=== PATIENT | male | born 1960 | race Caucasian/White ===

== ENCOUNTER 2019-11-09 21:55 | Emergency (ER) | payer MEDICAID ==
[~2019-11-09] VITALS: Ht 175.3 cm; Wt 86.2 kg
[~2019-11-09 21:55] MED LIST: APIX2.5T OR; METO25TA5 PO
[2019-11-09 23:05] LABS: Basophils # (auto) 0 uL; Basophils % (auto) 0.8 % (0.0-2.0); Eosinophils # (auto) 0.1 uL; Eosinophils % (auto) 1.6 % (0.0-7.0); Hemoglobin 12.7 g/dL (13.5-17.5); Lymphocytes % (auto) 19.2 % (10.0-50.0); Mean Corpuscular Hemoglobin 32.9 pg (28.0-32.0); Mean Corpuscular Hgb Conc. 34.4 g/dL (32.0-36.0); Mean Corpuscular Volume 95.6 fL (80.0-100.0); Monocytes # (auto) 0.4 uL; Monocytes % (auto) 8.3 % (0.0-12.0); Neutrophils # (auto) 3.5 uL; Neutrophils % (auto) 70.1 % (37.0-80.0); Nucleated Red Blood Cells % 0.1 %; Platelet Count (auto) 155 10^3/uL (140-450); Red Blood Cells 3.87 10^6/uL (4.5-5.90); Red Cell Distribution Width 15.3 % (11.8-14.3)
[2019-11-09 23:22] LABS: Albumin 3.3 g/dL (3.4-5.0); BUN/Creatinine Ratio 17.8; Calcium 9.1 mg/dL (8.5-10.1); Magnesium 1.8 mg/dL (1.6-2.6); Potassium 3.9 mmol/L (3.5-5.1)
[2019-11-09 23:27] LABS: Bilirubin, Total 1.7 mg/dL (0.2-1.0); INR 1.21 (0.9-1.15); Partial Thromboplastin Time 28.8 sec (23.64-32.05); Total Protein 6.9 g/dL (6.4-8.2)
[2019-11-10 02:24] VITALS: BP 146/84
== END 2019-11-10 02:26 | disposition home or self-care (01) ==
LOC: EDBD 21:55 → ER 22:01
DX: I48.20 Chronic atrial fibrillation, unspecified (principal); I11.0 Hypertensive heart disease with heart failure; I50.9 Heart failure, unspecified; J44.9 Chronic obstructive pulmonary disease, unspecified; I42.9 Cardiomyopathy, unspecified; Z79.899 Other long term (current) drug therapy
CPT/HCPCS: 36415; 71045; 80053; 83735; 83880; 84484; 85025; 85610; 85730; 93005

== ENCOUNTER 2021-09-08 16:52 | Inpatient (IN) | payer MEDICAID ==
[~2021-09-08] VITALS: Ht 176.5 cm; Wt 91.0 kg
[2021-09-08 19:15] LABS: Basophils # (auto) 0 10 ^3/uL (0-0.2); Basophils % (auto) 0.3 % (0.0-2.0); Eosinophils # (auto) 0 10 ^3/uL (0-0.8); Hematocrit 42.5 % (41.0-53.0); Lymphocytes # (auto) 0.6 10 ^3/uL (0.4-5.4); Lymphocytes % (auto) 5.2 % (10.0-50.0); Mean Corpuscular Hemoglobin 32.2 pg (28.0-32.0); Mean Corpuscular Hgb Conc. 32.9 g/dL (32.0-36.0); Mean Corpuscular Volume 97.7 fL (80.0-100.0); Monocytes # (auto) 0.5 10 ^3/uL (0-1.3); Monocytes % (auto) 4.8 % (0.0-12.0); Neutrophils # (auto) 9.9 10 ^3/uL (1.6-8.6); Neutrophils % (auto) 89.7 % (37.0-80.0); Red Blood Cells 4.35 10^6/uL (4.5-5.90); Red Cell Distribution Width 15.1 % (11.8-14.3)
[2021-09-08 19:28] LABS: Albumin 2.8 g/dL (3.4-5.0); Calcium 8.8 mg/dL (8.5-10.1); Potassium 4.2 mmol/L (3.5-5.1)
[2021-09-08 19:34] LABS: Bilirubin, Total 5.7 mg/dL (0.2-1.0); Lactic Acid w/Reflex 2.8 mmol/L (0.4-2.0); Total Protein 7.3 g/dL (6.4-8.2)
[2021-09-08] MEDS ORDERED: cefTRIAXone 1GM/50ML D5W 50 ML IV ONE (20:30)
[2021-09-08] MEDS ORDERED: FUROSEMIDE 40 MG/4 ML VIAL IV ONE (20:30)
[2021-09-08] MEDS ORDERED: ENOXAPARIN SOD 80 MG/0.8ML SYRINGE SC ONE (20:30)
[2021-09-08 22:38] LABS: Urine Bacteria NONE SEEN /hpf (None Seen); Urine Blood Negative /uL (Negative); Urine Specific Gravity 1.023 (1.001-1.035); Urine WBC 1 /hpf (0 - 3)
[2021-09-09] MEDS ORDERED: ONDANSETRON HCL 4 MG/2 ML VIAL IV PRN (00:15)
[2021-09-09] MEDS ORDERED: DOCUSATE SOD 100 MG CAP PO PRN (00:15)
[2021-09-09] MEDS ORDERED: MORPHINE SULFATE INJECTION 2 MG/ML SYRG IV PRN (00:15)
[2021-09-09] MEDS ORDERED: ACETAMINOPHEN 325 MG TAB PO PRN (00:15)
[2021-09-09] MEDS ORDERED: ALBUMIN 25% 50 ML IV ONE (00:15)
[2021-09-09] MEDS ORDERED: NITROGLYCERIN 0.4 MG SL TAB SL PRN (00:15)
[2021-09-09 05:02] LABS: Basophils # (auto) 0 10 ^3/uL (0-0.2); Basophils % (auto) 0.1 % (0.0-2.0); Eosinophils # (auto) 0 10 ^3/uL (0-0.8); Hemoglobin 12.4 g/dL (13.5-17.5); Lymphocytes # (auto) 0.4 10 ^3/uL (0.4-5.4); Lymphocytes % (auto) 4.3 % (10.0-50.0); Mean Corpuscular Hemoglobin 32.2 pg (28.0-32.0); Mean Corpuscular Hgb Conc. 33.4 g/dL (32.0-36.0); Mean Corpuscular Volume 96.3 fL (80.0-100.0); Monocytes # (auto) 0.5 10 ^3/uL (0-1.3); Monocytes % (auto) 5.2 % (0.0-12.0); Neutrophils # (auto) 7.9 10 ^3/uL (1.6-8.6); Neutrophils % (auto) 90.4 % (37.0-80.0); Red Blood Cells 3.85 10^6/uL (4.5-5.90); Red Cell Distribution Width 14.9 % (11.8-14.3); White Blood Cell 8.7 10^3/uL (4.4-10.8)
[2021-09-09 05:27] LABS: Albumin 2.3 g/dL (3.4-5.0); BUN/Creatinine Ratio 33.3; Calcium 8.2 mg/dL (8.5-10.1); Potassium 3.3 mmol/L (3.5-5.1)
[2021-09-09 05:35] LABS: Bilirubin, Total 5.1 mg/dL (0.2-1.0); Total Protein 5.8 g/dL (6.4-8.2)
[2021-09-09] MEDS: cefTRIAXone 1GM/50ML D5W 50 ML IV SCH (08:29)
[2021-09-09] MEDS: HYDROcodone-ACET 5/325MG TAB PO PRN (08:59)
[2021-09-09] MEDS: ASPirin 81 mg TAB PO SCH (09:51)
[2021-09-09] MEDS: FAMOTIDINE (10MG/ML) 2ML VL IV SCH ×2 (09:51→22:22)
[2021-09-09] MEDS: CARVEDILOL 3.125 MG TAB PO SCH ×2 (09:51→10:57)
[2021-09-09] MEDS: ASCORBIC ACID 500 MG TAB PO SCH ×2 (09:52→22:21)
[2021-09-09] MEDS: ZINC SULFATE 220mg CAP or TAB PO SCH (09:52)
[2021-09-09] MEDS: MULTIPLE VITAMIN TAB PO SCH (09:52)
[2021-09-09] MEDS: APIXABAN 2.5 MG TAB PO SCH ×2 (09:52→22:21)
[2021-09-09] MEDS ORDERED: AZITHROMYCIN 500MG/ 250ML 250 ML IV SCH (10:00)
[2021-09-09] MEDS ORDERED: FUROSEMIDE 40 MG/4 ML VIAL IV SCH ×2 (10:00→13:00)
[2021-09-09] MEDS ORDERED: NOREPINEPHRINE 8 MG/250ML KIT 250 ML IV ONE (12:42)
[2021-09-09] MEDS ORDERED: NOREPINEPHRINE 8 MG/250ML KIT 250 ML IV SCH (13:00)
[2021-09-09] MEDS: FUROSEMIDE 40 MG/4 ML VIAL IV SCH ×2 (16:46→22:38)
[2021-09-09 20:30] VITALS: BP 106/78
[2021-09-09 22:00] VITALS: BP 106/78
[2021-09-09] MEDS: SACUBITRIL-VALSARTAN 24mg/26mg TAB PO SCH (22:21)
[2021-09-10 05:00] VITALS: BP 90/59
[2021-09-10] MEDS ORDERED: FURO40TA4 PO (05:01)
[2021-09-10] MEDS ORDERED: MEXI150C15 PO (05:05)
[2021-09-10] MEDS: FUROSEMIDE 40 MG/4 ML VIAL IV SCH ×2 (05:38→18:08)
[2021-09-10 07:30] LABS: Basophils # (auto) 0 10 ^3/uL (0-0.2); Basophils % (auto) 0.1 % (0.0-2.0); Eosinophils # (auto) 0.1 10 ^3/uL (0-0.8); Eosinophils % (auto) 1.1 % (0.0-7.0); Hematocrit 35.6 % (41.0-53.0); Hemoglobin 12.2 g/dL (13.5-17.5); Lymphocytes # (auto) 0.7 10 ^3/uL (0.4-5.4); Lymphocytes % (auto) 10.2 % (10.0-50.0); Mean Corpuscular Hemoglobin 33.5 pg (28.0-32.0); Mean Corpuscular Hgb Conc. 34.4 g/dL (32.0-36.0); Mean Corpuscular Volume 97.2 fL (80.0-100.0); Monocytes # (auto) 0.9 10 ^3/uL (0-1.3); Monocytes % (auto) 13.7 % (0.0-12.0); Neutrophils # (auto) 5.1 10 ^3/uL (1.6-8.6); Neutrophils % (auto) 74.9 % (37.0-80.0); Nucleated Red Blood Cells % 0.1 %; Red Blood Cells 3.66 10^6/uL (4.5-5.90); Red Cell Distribution Width 14.9 % (11.8-14.3); White Blood Cell 6.8 10^3/uL (4.4-10.8)
[2021-09-10 07:36] LABS: Potassium 3.2 mmol/L (3.5-5.1)
[2021-09-10 07:46] LABS: Albumin 1.8 g/dL (3.4-5.0); BUN/Creatinine Ratio 33.3; Bilirubin, Total 2.2 mg/dL (0.2-1.0); Calcium 7.5 mg/dL (8.5-10.1); Total Protein 4.7 g/dL (6.4-8.2)
[2021-09-10 08:41] VITALS: BP 140/48
[2021-09-10] MEDS: cefTRIAXone 1GM/50ML D5W 50 ML IV SCH (09:25)
[2021-09-10] MEDS: FAMOTIDINE (10MG/ML) 2ML VL IV SCH ×2 (10:37→22:51)
[2021-09-10] MEDS: CARVEDILOL 3.125 MG TAB PO SCH ×2 (10:38→22:53)
[2021-09-10] MEDS: ASPirin 81 mg TAB PO SCH (10:38)
[2021-09-10] MEDS: SACUBITRIL-VALSARTAN 24mg/26mg TAB PO SCH ×2 (10:38→22:53)
[2021-09-10] MEDS: MULTIPLE VITAMIN TAB PO SCH (10:38)
[2021-09-10] MEDS: ZINC SULFATE 220mg CAP or TAB PO SCH (10:38)
[2021-09-10] MEDS: APIXABAN 2.5 MG TAB PO SCH ×2 (10:38→22:53)
[2021-09-10] MEDS: ASCORBIC ACID 500 MG TAB PO SCH ×2 (10:39→22:54)
[2021-09-10] MEDS: HYDROcodone-ACET 5/325MG TAB PO PRN ×2 (12:00→20:03)
[2021-09-10] MEDS: POTASSIUM CHL 20 Meq TABLET PO SCH (12:30)
[2021-09-10 12:36] VITALS: BP 107/54
[2021-09-10 16:48] VITALS: BP 78/50
[2021-09-10 22:20] VITALS: BP 95/68
[2021-09-11 05:00] VITALS: BP 96/56
[2021-09-11] MEDS: FUROSEMIDE 40 MG/4 ML VIAL IV SCH ×2 (05:35→18:00)
[2021-09-11 08:13] LABS: Basophils # (auto) 0 10 ^3/uL (0-0.2); Basophils % (auto) 0.5 % (0.0-2.0); Eosinophils # (auto) 0.1 10 ^3/uL (0-0.8); Eosinophils % (auto) 2.3 % (0.0-7.0); Hemoglobin 12.9 g/dL (13.5-17.5); Lymphocytes # (auto) 0.9 10 ^3/uL (0.4-5.4); Lymphocytes % (auto) 16.4 % (10.0-50.0); Mean Corpuscular Hemoglobin 33.2 pg (28.0-32.0); Mean Corpuscular Hgb Conc. 34.1 g/dL (32.0-36.0); Mean Corpuscular Volume 97.5 fL (80.0-100.0); Monocytes % (auto) 17.9 % (0.0-12.0); Neutrophils # (auto) 3.5 10 ^3/uL (1.6-8.6); Neutrophils % (auto) 62.9 % (37.0-80.0); Red Blood Cells 3.89 10^6/uL (4.5-5.90); Red Cell Distribution Width 14.9 % (11.8-14.3); White Blood Cell 5.5 10^3/uL (4.4-10.8)
[2021-09-11 08:19] LABS: Potassium 3.4 mmol/L (3.5-5.1)
[2021-09-11 08:27] LABS: Albumin 1.8 g/dL (3.4-5.0); BUN/Creatinine Ratio 35.8; Bilirubin, Total 1.4 mg/dL (0.2-1.0); Calcium 7.8 mg/dL (8.5-10.1); Phosphorus 2.4 mg/dL (2.5-4.90); Total Protein 4.7 g/dL (6.4-8.2)
[2021-09-11 09:00] VITALS: BP 84/61
[2021-09-11] MEDS: cefTRIAXone 1GM/50ML D5W 50 ML IV SCH (09:00)
[2021-09-11] MEDS: CARVEDILOL 3.125 MG TAB PO SCH ×2 (10:00→21:35)
[2021-09-11] MEDS: FAMOTIDINE (10MG/ML) 2ML VL IV SCH ×2 (10:28→21:34)
[2021-09-11] MEDS: ASPirin 81 mg TAB PO SCH (10:29)
[2021-09-11] MEDS: ZINC SULFATE 220mg CAP or TAB PO SCH (10:29)
[2021-09-11] MEDS: ASCORBIC ACID 500 MG TAB PO SCH ×2 (10:30→21:35)
[2021-09-11] MEDS: SACUBITRIL-VALSARTAN 24mg/26mg TAB PO SCH ×2 (10:30→21:35)
[2021-09-11] MEDS: POTASSIUM CHL 20 Meq TABLET PO SCH (10:30)
[2021-09-11] MEDS: MULTIPLE VITAMIN TAB PO SCH (10:30)
[2021-09-11 11:24] LABS: Hepatitis B Surface Antibody Negative
[2021-09-11 11:47] LABS: Hepatitis A Total Antibody Negative
[2021-09-11 12:56] VITALS: BP 86/53
[2021-09-11 15:15] LABS: Hepatitis C Antibody Negative (Negative)
[2021-09-11 16:40] VITALS: BP 92/66
[2021-09-11] MEDS: HYDROcodone-ACET 5/325MG TAB PO PRN (19:48)
[2021-09-11 22:00] VITALS: BP 93/57
[2021-09-12 05:17] VITALS: BP 107/73
[2021-09-12] MEDS: FUROSEMIDE 40 MG/4 ML VIAL IV SCH ×2 (06:00→17:30)
[2021-09-12 09:00] VITALS: BP 90/51
[2021-09-12] MEDS: cefTRIAXone 1GM/50ML D5W 50 ML IV SCH (09:00)
[2021-09-12] MEDS: ASPirin 81 mg TAB PO SCH (09:18)
[2021-09-12] MEDS: FAMOTIDINE (10MG/ML) 2ML VL IV SCH ×2 (09:18→21:35)
[2021-09-12] MEDS: CARVEDILOL 3.125 MG TAB PO SCH ×2 (09:19→21:49)
[2021-09-12] MEDS: SACUBITRIL-VALSARTAN 24mg/26mg TAB PO SCH ×2 (09:20→21:49)
[2021-09-12] MEDS: POTASSIUM CHL 20 Meq TABLET PO SCH (09:20)
[2021-09-12] MEDS: MULTIPLE VITAMIN TAB PO SCH (09:20)
[2021-09-12] MEDS: ASCORBIC ACID 500 MG TAB PO SCH ×2 (09:20→21:36)
[2021-09-12] MEDS: ZINC SULFATE 220mg CAP or TAB PO SCH (10:00)
[2021-09-12 13:00] VITALS: BP 102/63
[2021-09-12] MEDS: HYDROcodone-ACET 5/325MG TAB PO PRN (13:16)
[2021-09-12 17:00] VITALS: BP 123/77
[2021-09-12 22:00] VITALS: BP 95/62
[2021-09-13 05:00] VITALS: BP 104/77
[2021-09-13] MEDS: FUROSEMIDE 40 MG/4 ML VIAL IV SCH ×2 (05:56→17:33)
[2021-09-13 07:50] LABS: Basophils # (auto) 0 10 ^3/uL (0-0.2); Basophils % (auto) 0.4 % (0.0-2.0); Eosinophils # (auto) 0.2 10 ^3/uL (0-0.8); Eosinophils % (auto) 2.1 % (0.0-7.0); Hematocrit 40.2 % (41.0-53.0); Hemoglobin 13.3 g/dL (13.5-17.5); Lymphocytes # (auto) 1.4 10 ^3/uL (0.4-5.4); Lymphocytes % (auto) 17.6 % (10.0-50.0); Mean Corpuscular Hemoglobin 32.3 pg (28.0-32.0); Mean Corpuscular Hgb Conc. 33.1 g/dL (32.0-36.0); Mean Corpuscular Volume 97.8 fL (80.0-100.0); Monocytes % (auto) 12.1 % (0.0-12.0); Neutrophils # (auto) 5.5 10 ^3/uL (1.6-8.6); Neutrophils % (auto) 67.8 % (37.0-80.0); Nucleated Red Blood Cells % 0.1 %; Red Blood Cells 4.11 10^6/uL (4.5-5.90); Red Cell Distribution Width 14.9 % (11.8-14.3); White Blood Cell 8.1 10^3/uL (4.4-10.8)
[2021-09-13 08:12] LABS: Albumin 1.9 g/dL (3.4-5.0); BUN/Creatinine Ratio 30.4; Calcium 7.9 mg/dL (8.5-10.1)
[2021-09-13 08:15] LABS: Total Protein 5.1 g/dL (6.4-8.2)
[2021-09-13 09:00] VITALS: BP 108/45
[2021-09-13] MEDS: FAMOTIDINE (10MG/ML) 2ML VL IV SCH ×2 (09:43→21:44)
[2021-09-13] MEDS: cefTRIAXone 1GM/50ML D5W 50 ML IV SCH (09:43)
[2021-09-13] MEDS: CARVEDILOL 3.125 MG TAB PO SCH ×2 (09:44→21:45)
[2021-09-13] MEDS: ZINC SULFATE 220mg CAP or TAB PO SCH (09:44)
[2021-09-13] MEDS: MULTIPLE VITAMIN TAB PO SCH (09:44)
[2021-09-13] MEDS: ASPirin 81 mg TAB PO SCH (09:44)
[2021-09-13] MEDS: SACUBITRIL-VALSARTAN 24mg/26mg TAB PO SCH ×2 (09:45→21:45)
[2021-09-13] MEDS: POTASSIUM CHL 20 Meq TABLET PO SCH (09:46)
[2021-09-13] MEDS: ASCORBIC ACID 500 MG TAB PO SCH ×2 (09:46→21:45)
[2021-09-13 13:00] VITALS: BP 104/71
[2021-09-13 16:46] VITALS: BP 107/68
[2021-09-13] MEDS ORDERED: IPRATROPIUM BROM 0.5 MG/2.5ML INH SOL NEB PRN (17:30)
[2021-09-13] MEDS ORDERED: ALBUTEROL SULF 2.5 MG/0.5ML(0.5%) NEB SOLN NEB PRN (17:30)
[2021-09-13 19:13] VITALS: BP 107/68
[2021-09-13 22:00] VITALS: BP 106/59
[2021-09-13] MEDS: guaiFENesin-CODEINE Liq 5 ML UD PO PRN (22:25)
[2021-09-14] MEDS: guaiFENesin-CODEINE Liq 5 ML UD PO PRN ×2 (02:25→06:31)
[2021-09-14 05:00] VITALS: BP 103/59
[2021-09-14] MEDS: FUROSEMIDE 40 MG/4 ML VIAL IV SCH ×2 (06:31→17:52)
[2021-09-14 09:00] VITALS: BP 100/61
[2021-09-14] MEDS: ASCORBIC ACID 500 MG TAB PO SCH (09:47)
[2021-09-14] MEDS: MULTIPLE VITAMIN TAB PO SCH (09:47)
[2021-09-14] MEDS: cefTRIAXone 1GM/50ML D5W 50 ML IV SCH (09:47)
[2021-09-14] MEDS: ZINC SULFATE 220mg CAP or TAB PO SCH (09:48)
[2021-09-14] MEDS: FAMOTIDINE (10MG/ML) 2ML VL IV SCH (09:49)
[2021-09-14] MEDS: ASPirin 81 mg TAB PO SCH (09:49)
[2021-09-14] MEDS: POTASSIUM CHL 20 Meq TABLET PO SCH (09:49)
[2021-09-14] MEDS: SACUBITRIL-VALSARTAN 24mg/26mg TAB PO SCH (09:49)
[2021-09-14] MEDS: CARVEDILOL 3.125 MG TAB PO SCH (10:00)
[2021-09-14 13:00] VITALS: BP 102/66
[2021-09-14 15:44] VITALS: BP 100/61
[2021-09-14 17:00] VITALS: BP 101/54
== END 2021-09-14 19:08 | disposition hospice, home (50) | DRG 201 ==
LOC: ER 16:52 → EDBD 16:52 → TELE 09-09 00:09 → TELE-CENTR 09-09 20:14
PROVIDERS: ADMIT Nurse Practitioner Family; ATTEND Internal Medicine
DX: I48.0 Paroxysmal atrial fibrillation (principal); J96.01 Acute respiratory failure with hypoxia; I50.43 Acute on chronic combined systolic (congestive) and diastolic (congestive) heart failure; I21.A1 Myocardial infarction type 2; E87.2 Acidosis; J18.9 Pneumonia, unspecified organism; E88.09 Other disorders of plasma-protein metabolism, not elsewhere classified; I95.9 Hypotension, unspecified; I13.0 Hypertensive heart and chronic kidney disease with heart failure and stage 1 through stage 4 chronic kidney disease, or unspecified chronic kidney disease; I42.9 Cardiomyopathy, unspecified; K76.0 Fatty (change of) liver, not elsewhere classified; D72.829 Elevated white blood cell count, unspecified; N18.9 Chronic kidney disease, unspecified; K80.20 Calculus of gallbladder without cholecystitis without obstruction; Z20.822 Contact with and (suspected) exposure to COVID-19; J44.0 Chronic obstructive pulmonary disease with (acute) lower respiratory infection; Z79.01 Long term (current) use of anticoagulants; Z95.0 Presence of cardiac pacemaker; I50.84 End stage heart failure
CPT/HCPCS: 36415; 71045; 76705; 80053; 81001; 83605; 83735; 83880; 84100; 84484; 85025; 86704; 86706; 86708; 86803; 87040; 87077; 87186; 87340; 87426; 93005; 93306; 93925; 96365; 96372; 96375; 97116; 97163; 97530; 99291; G0378; J0696; J3490

== ENCOUNTER 2022-09-27 14:08 | Inpatient (IN) | payer MEDICAID ==
[~2022-09-27] VITALS: Ht 170.2 cm; Wt 76.6 kg
[~2022-09-27 14:08] MED LIST changes: +ACET-1156 PO; -APIX2.5T OR; +APIX5TAB PO; +BISA10SU60 PR; +CAR3125T PO; +FUR20T PO; -METO25TA5 PO; +PANT40T PO; +SACU1TAB PO; +SUCR1TAB22 OR
[2022-09-27] MEDS ORDERED: FUROSEMIDE 40 MG/4 ML VIAL IV ONE (14:30)
[2022-09-27 15:16] LABS: Basophils # (auto) 0 10 ^3/uL (0-0.2); Basophils % (auto) 0.3 % (0.0-2.0); Eosinophils # (auto) 0 10 ^3/uL (0-0.8); Eosinophils % (auto) 0.1 % (0.0-7.0); Hematocrit 34.4 % (41.0-53.0); Hemoglobin 11.4 g/dL (13.5-17.5); Lymphocytes # (auto) 0.6 10 ^3/uL (0.4-5.4); Lymphocytes % (auto) 5.7 % (10.0-50.0); Mean Corpuscular Hemoglobin 31.7 pg (28.0-32.0); Mean Corpuscular Hgb Conc. 33.2 g/dL (32.0-36.0); Mean Corpuscular Volume 95.3 fL (80.0-100.0); Monocytes # (auto) 0.9 10 ^3/uL (0-1.3); Monocytes % (auto) 9.2 % (0.0-12.0); Neutrophils # (auto) 8.6 10 ^3/uL (1.6-8.6); Neutrophils % (auto) 84.7 % (37.0-80.0); Nucleated Red Blood Cells % 0.1 %; Red Blood Cells 3.61 10^6/uL (4.5-5.90); Red Cell Distribution Width 14.8 % (11.8-14.3); White Blood Cell 10.1 10^3/uL (4.4-10.8)
[2022-09-27 15:32] LABS: Calcium 8.4 mg/dL (8.5-10.1); Potassium 3.7 mmol/L (3.5-5.1)
[2022-09-27 15:35] LABS: BUN/Creatinine Ratio 15.1; Bilirubin, Total 1.6 mg/dL (0.2-1.0); Total Protein 6.1 g/dL (6.4-8.2)
[2022-09-27 15:38] LABS: INR 1.23 (0.9-1.15); Partial Thromboplastin Time 32.2 sec (24.6-33.4)
[2022-09-27 16:29] LABS: Urine Bacteria NONE SEEN /hpf (None Seen); Urine Blood Negative /uL (Negative); Urine Hyaline Cast FEW /lpf (0 - 2); Urine Mucus FEW (None Seen); Urine Specific Gravity 1.007 (1.001-1.035); Urine WBC <1 /hpf (0 - 3)
[2022-09-27] MEDS ORDERED: DOCUSATE SOD 100 MG CAP PO PRN (17:15)
[2022-09-27] MEDS ORDERED: IPRATROPIUM BROM 0.5 MG/2.5ML INH SOL NEB PRN ×2 (17:15→17:30)
[2022-09-27] MEDS ORDERED: MORPHINE SULFATE INJ 2 MG/ml SYRG IV PRN ×2 (17:15)
[2022-09-27] MEDS ORDERED: ACETAMINOPHEN 325 MG TAB PO PRN (17:15)
[2022-09-27] MEDS ORDERED: NITROGLYCERIN 0.4 MG SL TAB SL PRN (17:15)
[2022-09-27 19:35] VITALS: BP 104/69
[2022-09-27] MEDS: HYDROcodone-ACET 5/325MG TAB PO PRN (20:30)
[2022-09-27] MEDS ORDERED: IOHEXOL 350 MG/ML 100ML IJ ONE (21:42)
[2022-09-27] MEDS: DOXYCYCLINE 100MG/250ML 250 ML IV SCH (22:16)
[2022-09-27] MEDS: SUCRALFATE 1 GM TAB PO SCH (22:17)
[2022-09-27] MEDS: CARVEDILOL 3.125 MG TAB PO SCH (22:17)
[2022-09-27] MEDS: APIXABAN 5 MG TAB PO SCH (22:18)
[2022-09-27] MEDS: SACUBITRIL-VALSARTAN 24mg/26mg TAB PO SCH (22:18)
[2022-09-27] MEDS: PANTOPRAZOLE 40 MG TAB PO SCH (22:18)
[2022-09-27 22:33] VITALS: BP 112/62
[2022-09-27] MEDS ORDERED: POTA10TA51 PO (23:20)
[2022-09-28 04:44] VITALS: BP 99/53
[2022-09-28 05:54] LABS: Basophils # (auto) 0 10 ^3/uL (0-0.2); Basophils % (auto) 0.4 % (0.0-2.0); Eosinophils # (auto) 0 10 ^3/uL (0-0.8); Eosinophils % (auto) 0.3 % (0.0-7.0); Hematocrit 29.5 % (41.0-53.0); Lymphocytes # (auto) 0.8 10 ^3/uL (0.4-5.4); Lymphocytes % (auto) 8.9 % (10.0-50.0); Mean Corpuscular Hemoglobin 31.7 pg (28.0-32.0); Mean Corpuscular Volume 93.2 fL (80.0-100.0); Monocytes % (auto) 11.7 % (0.0-12.0); Neutrophils % (auto) 78.7 % (37.0-80.0); Red Blood Cells 3.16 10^6/uL (4.5-5.90); Red Cell Distribution Width 14.8 % (11.8-14.3); White Blood Cell 8.9 10^3/uL (4.4-10.8)
[2022-09-28 06:10] LABS: Albumin 1.6 g/dL (3.4-5.0); Calcium 7.9 mg/dL (8.5-10.1); Potassium 3.7 mmol/L (3.5-5.1)
[2022-09-28 06:12] LABS: Bilirubin, Total 1.2 mg/dL (0.2-1.0)
[2022-09-28] MEDS: APIXABAN 5 MG TAB PO SCH ×2 (08:43→22:45)
[2022-09-28] MEDS: CARVEDILOL 3.125 MG TAB PO SCH ×2 (08:43→22:45)
[2022-09-28] MEDS: PANTOPRAZOLE 40 MG TAB PO SCH ×2 (08:43→22:46)
[2022-09-28] MEDS: SUCRALFATE 1 GM TAB PO SCH ×2 (08:43→22:44)
[2022-09-28] MEDS: DOXYCYCLINE 100MG/250ML 250 ML IV SCH ×2 (08:43→22:44)
[2022-09-28] MEDS: SACUBITRIL-VALSARTAN 24mg/26mg TAB PO SCH ×2 (08:44→22:46)
[2022-09-28] MEDS: HYDROcodone-ACET 5/325MG TAB PO PRN (08:50)
[2022-09-28 09:00] VITALS: BP 92/55
[2022-09-28] MEDS ORDERED: FUROSEMIDE 20 MG TAB PO SCH (10:00)
[2022-09-28 13:00] VITALS: BP 99/64
[2022-09-28] MEDS ORDERED: FUROSEMIDE 20 MG TAB PO ONE (16:30)
[2022-09-28 17:00] VITALS: BP 99/53
[2022-09-28 22:00] VITALS: BP 92/56
[2022-09-29 05:00] VITALS: BP 92/56
[2022-09-29 07:08] LABS: Potassium 3.8 mmol/L (3.5-5.1)
[2022-09-29 07:14] LABS: BUN/Creatinine Ratio 28.6; Calcium 8.1 mg/dL (8.5-10.1)
[2022-09-29 09:00] VITALS: BP 99/65
[2022-09-29] MEDS: DOXYCYCLINE 100MG/250ML 250 ML IV SCH ×2 (09:20→23:02)
[2022-09-29] MEDS: PANTOPRAZOLE 40 MG TAB PO SCH ×2 (09:21→23:08)
[2022-09-29] MEDS: APIXABAN 5 MG TAB PO SCH ×2 (09:22→23:08)
[2022-09-29] MEDS: CARVEDILOL 3.125 MG TAB PO SCH ×2 (09:22→23:08)
[2022-09-29] MEDS: SUCRALFATE 1 GM TAB PO SCH ×2 (09:22→23:07)
[2022-09-29] MEDS: SACUBITRIL-VALSARTAN 24mg/26mg TAB PO SCH ×2 (09:27→23:08)
[2022-09-29] MEDS: HYDROcodone-ACET 5/325MG TAB PO PRN ×2 (09:34→23:22)
[2022-09-29] MEDS ORDERED: FUROSEMIDE 20 MG TAB PO SCH (10:00)
[2022-09-29 13:00] VITALS: BP 92/53
[2022-09-29 17:00] VITALS: BP 114/70
[2022-09-29] MEDS: FUROSEMIDE 40 MG/4 ML VIAL IV SCH (17:01)
[2022-09-29 22:00] VITALS: BP 91/56
[2022-09-30] MEDS: HYDROcodone-ACET 5/325MG TAB PO PRN ×2 (04:33→04:35)
[2022-09-30 05:00] VITALS: BP 88/53
[2022-09-30] MEDS: FUROSEMIDE 40 MG/4 ML VIAL IV SCH ×2 (06:00→17:18)
[2022-09-30 09:00] VITALS: BP 97/57
[2022-09-30] MEDS: PANTOPRAZOLE 40 MG TAB PO SCH ×2 (09:29→22:14)
[2022-09-30] MEDS: SUCRALFATE 1 GM TAB PO SCH ×2 (09:29→22:13)
[2022-09-30] MEDS: DOXYCYCLINE 100MG/250ML 250 ML IV SCH ×2 (09:29→22:14)
[2022-09-30] MEDS: APIXABAN 5 MG TAB PO SCH ×2 (09:30→22:11)
[2022-09-30] MEDS: CARVEDILOL 3.125 MG TAB PO SCH ×2 (09:41→22:13)
[2022-09-30] MEDS: SACUBITRIL-VALSARTAN 24mg/26mg TAB PO SCH ×2 (09:42→23:22)
[2022-09-30 13:00] VITALS: BP 89/56
[2022-09-30 16:35] VITALS: BP 87/58
[2022-09-30 20:00] VITALS: BP 99/60
[2022-09-30 22:00] VITALS: BP 93/56
[2022-10-01 05:00] VITALS: BP 100/58
[2022-10-01 05:59] LABS: Basophils # (auto) 0 10 ^3/uL (0-0.2); Basophils % (auto) 0.4 % (0.0-2.0); Eosinophils # (auto) 0.1 10 ^3/uL (0-0.8); Eosinophils % (auto) 0.9 % (0.0-7.0); Hematocrit 27.7 % (41.0-53.0); Hemoglobin 9.2 g/dL (13.5-17.5); Lymphocytes # (auto) 0.7 10 ^3/uL (0.4-5.4); Lymphocytes % (auto) 7.7 % (10.0-50.0); Mean Corpuscular Hgb Conc. 33.3 g/dL (32.0-36.0); Mean Corpuscular Volume 92.9 fL (80.0-100.0); Red Blood Cells 2.98 10^6/uL (4.5-5.90); Red Cell Distribution Width 14.8 % (11.8-14.3); White Blood Cell 8.7 10^3/uL (4.4-10.8)
[2022-10-01] MEDS: FUROSEMIDE 40 MG/4 ML VIAL IV SCH ×2 (06:47→18:44)
[2022-10-01 08:00] VITALS: BP 91/47
[2022-10-01 09:20] VITALS: BP 91/47
[2022-10-01 09:28] LABS: Alanine Aminotransferase 16 U/L (16-61); Albumin 1.5 g/dL (3.4-5.0); Anion Gap 9 (5-15); Aspartate Aminotransferase 20 U/L (15-37); BUN/Creatinine Ratio 28.6; Blood Urea Nitrogen 14 mg/dL (7-18); Calcium 7.7 mg/dL (8.5-10.1); Carbon Dioxide 27 mmol/L (21-32); Chloride 98 mmol/L (98-107); GFR African American 221 mL/min; GFR Non-African American 183 mL/min; Glucose 111 mg/dL (74-106); Potassium 3.5 mmol/L (3.5-5.1); Sodium 134 mmol/L (136-145)
[2022-10-01 09:30] LABS: Alkaline Phosphatase 210 U/L (45-117); Bilirubin, Total 0.6 mg/dL (0.2-1.0); Total Protein 5.1 g/dL (6.4-8.2)
[2022-10-01] MEDS: SUCRALFATE 1 GM TAB PO SCH ×2 (10:02→21:41)
[2022-10-01] MEDS: DOXYCYCLINE 100MG/250ML 250 ML IV SCH ×2 (10:02→21:42)
[2022-10-01] MEDS: CARVEDILOL 3.125 MG TAB PO SCH ×2 (10:03→21:42)
[2022-10-01] MEDS: PANTOPRAZOLE 40 MG TAB PO SCH ×2 (10:04→21:41)
[2022-10-01] MEDS: APIXABAN 5 MG TAB PO SCH ×2 (10:04→21:41)
[2022-10-01] MEDS: SACUBITRIL-VALSARTAN 24mg/26mg TAB PO SCH ×2 (10:04→23:40)
[2022-10-01 13:19] VITALS: BP 87/48
[2022-10-01 16:05] VITALS: BP 101/65
[2022-10-01] MEDS: ONDANSETRON HCL 4 MG/2 ML VIAL IV PRN ×2 (18:53→23:38)
[2022-10-01 22:00] VITALS: BP 95/46
[2022-10-02 05:00] VITALS: BP 95/61
[2022-10-02] MEDS: FUROSEMIDE 40 MG/4 ML VIAL IV SCH ×2 (06:19→18:00)
[2022-10-02 07:12] LABS: BUN/Creatinine Ratio 25.9; Calcium 8.5 mg/dL (8.5-10.1); Potassium 3.9 mmol/L (3.5-5.1)
[2022-10-02 09:02] VITALS: BP 91/59
[2022-10-02] MEDS: SACUBITRIL-VALSARTAN 24mg/26mg TAB PO SCH ×2 (10:00→22:06)
[2022-10-02] MEDS: CARVEDILOL 3.125 MG TAB PO SCH ×2 (10:00→22:05)
[2022-10-02] MEDS: Pro-Stat SF 30ml Vanilla PO SCH (10:27)
[2022-10-02] MEDS: DOXYCYCLINE 100MG/250ML 250 ML IV SCH ×2 (10:30→22:06)
[2022-10-02] MEDS: SUCRALFATE 1 GM TAB PO SCH ×2 (10:31→22:04)
[2022-10-02] MEDS: PANTOPRAZOLE 40 MG TAB PO SCH ×2 (10:33→22:04)
[2022-10-02] MEDS: APIXABAN 5 MG TAB PO SCH ×2 (10:33→22:05)
[2022-10-02 13:14] VITALS: BP 80/60
[2022-10-02 16:55] VITALS: BP 82/46
[2022-10-02 22:00] VITALS: BP 120/59
[2022-10-02] MEDS: MIDODRINE HCL 10 MG TAB PO SCH (22:05)
[2022-10-02] MEDS: HYDROcodone-ACET 5/325MG TAB PO PRN (22:17)
[2022-10-03] MEDS: ZOLPIDEM TARTRATE 5 MG TAB PO PRN ×2 (00:28→21:40)
[2022-10-03 01:15] LABS: Amphetamine Screen, Urine NEGATIVE (NEGATIVE); Barbiturate Scree,Urine NEGATIVE (NEGATIVE); Benzodiazephine Screen, Urine NEGATIVE (NEGATIVE); Cannabinoid Screen, Urine NEGATIVE (NEGATIVE); Cocaine Screen, Urine NEGATIVE (NEGATIVE); Opiate Scree,Urine NEGATIVE (NEGATIVE); Phencyclidine Screen, Urine NEGATIVE (NEGATIVE)
[2022-10-03 05:00] VITALS: BP 101/67
[2022-10-03] MEDS: FUROSEMIDE 40 MG/4 ML VIAL IV SCH ×2 (06:27→18:49)
[2022-10-03 09:00] VITALS: BP 84/55
[2022-10-03 09:06] VITALS: BP 84/55
[2022-10-03] MEDS ORDERED: IOHEXOL 300 MG/ML 100ML BOTTLE IJ ONE (09:24)
[2022-10-03] MEDS: CARVEDILOL 3.125 MG TAB PO SCH ×2 (10:30→22:00)
[2022-10-03] MEDS: PANTOPRAZOLE 40 MG TAB PO SCH ×2 (10:30→21:40)
[2022-10-03] MEDS: MIDODRINE HCL 10 MG TAB PO SCH ×2 (10:30→21:41)
[2022-10-03] MEDS: APIXABAN 5 MG TAB PO SCH ×2 (10:30→21:40)
[2022-10-03] MEDS: SUCRALFATE 1 GM TAB PO SCH ×2 (10:30→21:40)
[2022-10-03] MEDS: DOXYCYCLINE 100MG/250ML 250 ML IV SCH ×2 (10:30→21:41)
[2022-10-03] MEDS: Pro-Stat SF 30ml Vanilla PO SCH (10:30)
[2022-10-03] MEDS: SACUBITRIL-VALSARTAN 24mg/26mg TAB PO SCH ×2 (10:30→22:00)
[2022-10-03 13:00] VITALS: BP 92/51
[2022-10-03 17:00] VITALS: BP 93/54
[2022-10-03 22:00] VITALS: BP 95/53
[2022-10-04 05:34] VITALS: BP 104/57
[2022-10-04 05:53] LABS: Albumin 1.6 g/dL (3.4-5.0); BUN/Creatinine Ratio 32.7; Calcium 8.6 mg/dL (8.5-10.1); Potassium 3.9 mmol/L (3.5-5.1)
[2022-10-04 05:55] LABS: Bilirubin, Total 0.6 mg/dL (0.2-1.0); Total Protein 5.8 g/dL (6.4-8.2)
[2022-10-04] MEDS: FUROSEMIDE 40 MG/4 ML VIAL IV SCH ×2 (05:55→17:40)
[2022-10-04 06:08] LABS: Basophils # (auto) 0 10 ^3/uL (0-0.2); Basophils % (auto) 0.4 % (0.0-2.0); Eosinophils # (auto) 0.2 10 ^3/uL (0-0.8); Eosinophils % (auto) 2.2 % (0.0-7.0); Hematocrit 29.4 % (41.0-53.0); Hemoglobin 9.6 g/dL (13.5-17.5); Lymphocytes # (auto) 0.7 10 ^3/uL (0.4-5.4); Lymphocytes % (auto) 7.8 % (10.0-50.0); Mean Corpuscular Hemoglobin 30.4 pg (28.0-32.0); Mean Corpuscular Hgb Conc. 32.7 g/dL (32.0-36.0); Mean Corpuscular Volume 92.9 fL (80.0-100.0); Monocytes # (auto) 0.7 10 ^3/uL (0-1.3); Monocytes % (auto) 8.4 % (0.0-12.0); Neutrophils # (auto) 6.9 10 ^3/uL (1.6-8.6); Neutrophils % (auto) 81.2 % (37.0-80.0); Red Blood Cells 3.16 10^6/uL (4.5-5.90); Red Cell Distribution Width 14.8 % (11.8-14.3); White Blood Cell 8.5 10^3/uL (4.4-10.8)
[2022-10-04 08:45] LABS: INR 1.25 (0.9-1.15); Partial Thromboplastin Time 35.1 sec (24.6-33.4)
[2022-10-04 09:00] VITALS: BP 100/63
[2022-10-04] MEDS: DOXYCYCLINE 100MG/250ML 250 ML IV SCH ×2 (09:39→21:36)
[2022-10-04] MEDS: SPIRONOLACTONE 25 MG TAB PO SCH (09:39)
[2022-10-04] MEDS: SACUBITRIL-VALSARTAN 24mg/26mg TAB PO SCH ×2 (09:40→21:37)
[2022-10-04] MEDS: CARVEDILOL 3.125 MG TAB PO SCH ×2 (09:40→21:37)
[2022-10-04] MEDS: SUCRALFATE 1 GM TAB PO SCH ×2 (09:40→21:37)
[2022-10-04] MEDS: APIXABAN 5 MG TAB PO SCH ×2 (09:40→21:32)
[2022-10-04] MEDS: Pro-Stat SF 30ml Vanilla PO SCH (09:41)
[2022-10-04] MEDS: MIDODRINE HCL 10 MG TAB PO SCH ×2 (09:41→21:36)
[2022-10-04] MEDS: PANTOPRAZOLE 40 MG TAB PO SCH ×2 (09:41→21:37)
[2022-10-04 13:00] VITALS: BP 88/52
[2022-10-04 17:00] VITALS: BP 91/51
[2022-10-04 22:00] VITALS: BP 112/72
[2022-10-05] MEDS: ZOLPIDEM TARTRATE 5 MG TAB PO PRN ×2 (00:19→23:05)
[2022-10-05] MEDS: HYDROcodone-ACET 5/325MG TAB PO PRN (00:19)
[2022-10-05 05:00] VITALS: BP 96/58
[2022-10-05] MEDS: FUROSEMIDE 40 MG/4 ML VIAL IV SCH ×2 (06:00→17:42)
[2022-10-05 09:00] VITALS: BP 91/61
[2022-10-05] MEDS: APIXABAN 5 MG TAB PO SCH ×2 (09:48→21:09)
[2022-10-05] MEDS: DOXYCYCLINE 100MG/250ML 250 ML IV SCH ×2 (09:54→21:11)
[2022-10-05] MEDS: MIDODRINE HCL 10 MG TAB PO SCH ×2 (09:55→21:09)
[2022-10-05] MEDS: Pro-Stat SF 30ml Vanilla PO SCH (09:55)
[2022-10-05] MEDS: SUCRALFATE 1 GM TAB PO SCH ×2 (09:55→21:11)
[2022-10-05] MEDS: PANTOPRAZOLE 40 MG TAB PO SCH ×2 (09:55→21:10)
[2022-10-05] MEDS: SPIRONOLACTONE 25 MG TAB PO SCH (09:55)
[2022-10-05] MEDS: SACUBITRIL-VALSARTAN 24mg/26mg TAB PO SCH ×2 (09:55→21:08)
[2022-10-05] MEDS: CARVEDILOL 3.125 MG TAB PO SCH ×2 (09:57→21:10)
[2022-10-05 13:00] VITALS: BP 92/62
[2022-10-05 17:00] VITALS: BP 71/56
[2022-10-05 22:00] VITALS: BP 132/45
[2022-10-06 05:00] VITALS: BP 103/52
[2022-10-06] MEDS: FUROSEMIDE 40 MG/4 ML VIAL IV SCH ×2 (06:35→18:05)
[2022-10-06 08:55] VITALS: BP 104/63
[2022-10-06] MEDS: DOXYCYCLINE 100MG/250ML 250 ML IV SCH ×2 (09:42→22:12)
[2022-10-06] MEDS: SPIRONOLACTONE 25 MG TAB PO SCH (09:42)
[2022-10-06] MEDS: MIDODRINE HCL 10 MG TAB PO SCH ×2 (09:43→22:13)
[2022-10-06] MEDS: Pro-Stat SF 30ml Vanilla PO SCH (09:43)
[2022-10-06] MEDS: SUCRALFATE 1 GM TAB PO SCH ×2 (09:43→22:14)
[2022-10-06] MEDS: SACUBITRIL-VALSARTAN 24mg/26mg TAB PO SCH ×2 (09:43→22:13)
[2022-10-06] MEDS: PANTOPRAZOLE 40 MG TAB PO SCH ×2 (09:43→22:14)
[2022-10-06] MEDS: APIXABAN 5 MG TAB PO SCH ×2 (09:43→22:13)
[2022-10-06] MEDS: CARVEDILOL 3.125 MG TAB PO SCH ×2 (09:44→22:14)
[2022-10-06 13:00] VITALS: BP 95/54
[2022-10-06 17:00] VITALS: BP 95/58
[2022-10-06 22:00] VITALS: BP 92/64
[2022-10-07 05:00] VITALS: BP 92/43
[2022-10-07] MEDS: FUROSEMIDE 40 MG/4 ML VIAL IV SCH ×2 (06:00→18:30)
[2022-10-07 09:00] VITALS: BP 92/54
[2022-10-07] MEDS: SUCRALFATE 1 GM TAB PO SCH ×2 (10:11→21:50)
[2022-10-07] MEDS: DOXYCYCLINE 100MG/250ML 250 ML IV SCH ×2 (10:11→21:50)
[2022-10-07] MEDS: SPIRONOLACTONE 25 MG TAB PO SCH (10:11)
[2022-10-07] MEDS: MIDODRINE HCL 10 MG TAB PO SCH ×2 (10:12→21:50)
[2022-10-07] MEDS: SACUBITRIL-VALSARTAN 24mg/26mg TAB PO SCH ×2 (10:12→21:51)
[2022-10-07] MEDS: Pro-Stat SF 30ml Vanilla PO SCH (10:12)
[2022-10-07] MEDS: PANTOPRAZOLE 40 MG TAB PO SCH ×2 (10:12→21:50)
[2022-10-07] MEDS: APIXABAN 5 MG TAB PO SCH ×2 (10:12→21:50)
[2022-10-07] MEDS: CARVEDILOL 3.125 MG TAB PO SCH ×2 (10:13→22:59)
[2022-10-07 12:37] LABS: Albumin 1.4 g/dL (3.4-5.0); BUN/Creatinine Ratio 30.6; Bilirubin, Total 0.4 mg/dL (0.2-1.0); Calcium 8.1 mg/dL (8.5-10.1); Potassium 4.4 mmol/L (3.5-5.1)
[2022-10-07 13:00] VITALS: BP 94/58
[2022-10-07 17:00] VITALS: BP 85/44
[2022-10-07] MEDS: HYDROcodone-ACET 5/325MG TAB PO PRN (21:53)
[2022-10-07 21:59] VITALS: BP 77/46
[2022-10-08] VITALS (7 sets, daily range): BP systolic 75–120; BP diastolic 37–61
[2022-10-08] MEDS: FUROSEMIDE 40 MG/4 ML VIAL IV SCH ×2 (06:00→18:00)
[2022-10-08 06:16] LABS: Basophils # (auto) 0.1 10 ^3/uL (0-0.2); Eosinophils # (auto) 0.1 10 ^3/uL (0-0.8); Eosinophils % (auto) 1.9 % (0.0-7.0); Hematocrit 26.1 % (41.0-53.0); Hemoglobin 8.7 g/dL (13.5-17.5); Lymphocytes # (auto) 1.3 10 ^3/uL (0.4-5.4); Lymphocytes % (auto) 21.4 % (10.0-50.0); Mean Corpuscular Hemoglobin 30.9 pg (28.0-32.0); Mean Corpuscular Hgb Conc. 33.2 g/dL (32.0-36.0); Mean Corpuscular Volume 93.2 fL (80.0-100.0); Monocytes # (auto) 0.5 10 ^3/uL (0-1.3); Monocytes % (auto) 8.4 % (0.0-12.0); Neutrophils % (auto) 67.3 % (37.0-80.0); Nucleated Red Blood Cells % 0.1 %; Red Cell Distribution Width 14.9 % (11.8-14.3)
[2022-10-08 06:32] LABS: Albumin 1.5 g/dL (3.4-5.0); Magnesium 1.8 mg/dL (1.6-2.6); Potassium 4.2 mmol/L (3.5-5.1)
[2022-10-08 06:37] LABS: BUN/Creatinine Ratio 33.9; Bilirubin, Total 0.5 mg/dL (0.2-1.0); Phosphorus 2.8 mg/dL (2.5-4.90); Total Protein 5.1 g/dL (6.4-8.2)
[2022-10-08] MEDS: CARVEDILOL 3.125 MG TAB PO SCH ×2 (08:51→22:00)
[2022-10-08] MEDS: SPIRONOLACTONE 25 MG TAB PO SCH (08:51)
[2022-10-08] MEDS: SACUBITRIL-VALSARTAN 24mg/26mg TAB PO SCH ×2 (08:51→22:00)
[2022-10-08] MEDS: DOXYCYCLINE 100MG/250ML 250 ML IV SCH ×2 (09:29→23:01)
[2022-10-08] MEDS: APIXABAN 5 MG TAB PO SCH ×2 (09:30→23:01)
[2022-10-08] MEDS: SUCRALFATE 1 GM TAB PO SCH ×2 (09:31→23:01)
[2022-10-08] MEDS: Pro-Stat SF 30ml Vanilla PO SCH (09:31)
[2022-10-08] MEDS: MIDODRINE HCL 10 MG TAB PO SCH ×2 (09:31→23:02)
[2022-10-08] MEDS: PANTOPRAZOLE 40 MG TAB PO SCH ×2 (09:31→23:02)
[2022-10-08 10:24] LABS: Hepatitis B Surface Antibody Negative (Negative)
[2022-10-08 10:55] LABS: Hepatitis A Total Antibody Negative (Negative)
[2022-10-08 12:20] LABS: Hepatitis C Antibody Negative (Negative)
[2022-10-08] MEDS ORDERED: MID10T PO (14:48)
[2022-10-08] MEDS ORDERED: SACU1TAB PO (14:48)
[2022-10-08] MEDS ORDERED: SUCR1TAB PO (14:48)
[2022-10-08] MEDS ORDERED: CAR3125T PO (14:48)
[2022-10-08] MEDS ORDERED: SPIR25TA PO (14:48)
[2022-10-08] MEDS ORDERED: PANT40T PO (14:48)
[2022-10-08] MEDS ORDERED: APIX5TAB PO (14:48)
[2022-10-09 05:00] VITALS: BP 94/59
[2022-10-09] MEDS: FUROSEMIDE 40 MG/4 ML VIAL IV SCH (06:00)
[2022-10-09 09:00] VITALS: BP 92/52
[2022-10-09] MEDS: Pro-Stat SF 30ml Vanilla PO SCH (10:00)
[2022-10-09] MEDS: MIDODRINE HCL 10 MG TAB PO SCH (10:00)
[2022-10-09] MEDS: CARVEDILOL 3.125 MG TAB PO SCH (10:00)
[2022-10-09] MEDS: SPIRONOLACTONE 25 MG TAB PO SCH (10:00)
[2022-10-09] MEDS: APIXABAN 5 MG TAB PO SCH (11:22)
[2022-10-09] MEDS: PANTOPRAZOLE 40 MG TAB PO SCH (11:23)
[2022-10-09] MEDS: SUCRALFATE 1 GM TAB PO SCH (11:23)
[2022-10-09] MEDS: SACUBITRIL-VALSARTAN 24mg/26mg TAB PO SCH (11:23)
[2022-10-09] MEDS: DOXYCYCLINE 100MG/250ML 250 ML IV SCH (11:26)
[2022-10-09 13:00] VITALS: BP 105/69
[2022-10-09 15:17] VITALS: BP 105/69
== END 2022-10-09 16:00 | disposition home health service (06) | DRG 194 ==
LOC: ER 14:08 → EDBD 14:08 → TELE 17:13 → TELE-EAST 21:46
PROVIDERS: ADMIT Nurse Practitioner; ATTEND Nurse Practitioner
PROC: 0W9G3ZZ Drainage of Peritoneal Cavity, Percutaneous Approach (ICD-10-PCS; principal; 2022-10-04)
PROC: 4B02XTZ Measurement of Cardiac Defibrillator, External Approach (ICD-10-PCS; 2022-10-04)
PROC: 0W993ZZ Drainage of Right Pleural Cavity, Percutaneous Approach (ICD-10-PCS; 2022-10-05)
DX: I11.0 Hypertensive heart disease with heart failure (principal); E43 Unspecified severe protein-calorie malnutrition; R18.8 Other ascites; J91.8 Pleural effusion in other conditions classified elsewhere; I95.9 Hypotension, unspecified; I42.9 Cardiomyopathy, unspecified; K74.60 Unspecified cirrhosis of liver; I50.43 Acute on chronic combined systolic (congestive) and diastolic (congestive) heart failure; I48.20 Chronic atrial fibrillation, unspecified; E03.9 Hypothyroidism, unspecified; Z53.20 Procedure and treatment not carried out because of patient's decision for unspecified reasons; Z20.822 Contact with and (suspected) exposure to COVID-19; I50.84 End stage heart failure; J44.9 Chronic obstructive pulmonary disease, unspecified; Z95.810 Presence of automatic (implantable) cardiac defibrillator; Z59.00 Homelessness unspecified; Z79.899 Other long term (current) drug therapy; Z86.73 Personal history of transient ischemic attack (TIA), and cerebral infarction without residual deficits; Z87.19 Personal history of other diseases of the digestive system; Z79.01 Long term (current) use of anticoagulants; Z91.14 Patient's other noncompliance with medication regimen; Z88.1 Allergy status to other antibiotic agents; Z68.27 Body mass index [BMI] 27.0-27.9, adult
CPT/HCPCS: 36415; 71045; 71275; 74177; 76604; 76705; 76942; 80048; 80053; 80307; 81001; 83615; 83735; 83880; 83986; 84100; 84484; 85025; 85379; 85610; 85730; 86704; 86706; 86708; 86803; 87070; 87205; 87340; 87426; 89051; 93005; 93306; 96374; 97110; 97116; 97530; G0378; J2405; J3490

== ENCOUNTER 2023-02-02 20:52 | Inpatient (IN) | payer MEDICAID ==
[~2023-02-02] VITALS: Ht 175.3 cm; Wt 81.5 kg
[~2023-02-02 20:52] MED LIST changes: +MID10T PO; +POTA10TA51 PO; +SPIR25TA PO; +SUCR1TAB PO; -SUCR1TAB22 OR
[2023-02-02 22:49] LABS: Basophils # (auto) 0 10 ^3/uL (0-0.2); Basophils % (auto) 0.8 % (0.0-2.0); Eosinophils # (auto) 0 10 ^3/uL (0-0.8); Eosinophils % (auto) 0.7 % (0.0-7.0); Hematocrit 27.3 % (41.0-53.0); Hemoglobin 9.2 g/dL (13.5-17.5); Lymphocytes # (auto) 0.6 10 ^3/uL (0.4-5.4); Lymphocytes % (auto) 11.6 % (10.0-50.0); Mean Corpuscular Hemoglobin 30.1 pg (28.0-32.0); Mean Corpuscular Hgb Conc. 33.5 g/dL (32.0-36.0); Monocytes # (auto) 0.3 10 ^3/uL (0-1.3); Monocytes % (auto) 5.5 % (0.0-12.0); Neutrophils # (auto) 4.4 10 ^3/uL (1.6-8.6); Neutrophils % (auto) 81.4 % (37.0-80.0); Red Blood Cells 3.04 10^6/uL (4.5-5.90); Red Cell Distribution Width 15.5 % (11.8-14.3); White Blood Cell 5.3 10^3/uL (4.4-10.8)
[2023-02-02 23:02] LABS: Albumin 2.7 g/dL (3.4-5.0); BUN/Creatinine Ratio 23.9 (10.0-20.0); Potassium 3.5 mmol/L (3.5-5.1)
[2023-02-02 23:05] LABS: Bilirubin, Total 0.9 mg/dL (0.2-1.0); Total Protein 7.3 g/dL (6.4-8.2)
[2023-02-02] MEDS ORDERED: ASPirin 81 mg TAB PO ONE (23:45)
[2023-02-03 01:39] LABS: Urine Bacteria NONE SEEN /hpf (None Seen); Urine Blood TRACE /uL (Negative); Urine Hyaline Cast FEW /lpf (0 - 2); Urine Mucus FEW (None Seen); Urine Specific Gravity 1.026 (1.001-1.035); Urine WBC 1 /hpf (0 - 3)
[2023-02-03] MEDS ORDERED: MIDODRINE HCL 10 MG TAB PO ONE (02:00)
[2023-02-03] MEDS ORDERED: HEPARIN DRIP/D5W 100UNITS/ML 250 ML IV SCH (02:30)
[2023-02-03] MEDS ORDERED: HEPARIN SODIUM (PORCINE) 5000 UNITS/ML 1ML VIAL IV ONE (02:30)
[2023-02-03 04:10] LABS: INR 1.2 (0.9-1.15); Partial Thromboplastin Time 52.7 sec (24.6-33.4)
[2023-02-03] MEDS ORDERED: ONDANSETRON HCL 4 MG/2 ML VIAL IV PRN (06:00)
[2023-02-03] MEDS ORDERED: DOCUSATE SOD 100 MG CAP PO PRN (06:00)
[2023-02-03] MEDS ORDERED: MORPHINE SULFATE INJ 2 MG/ml SYRG IV PRN ×2 (06:00)
[2023-02-03] MEDS ORDERED: ACETAMINOPHEN 325 MG TAB PO PRN (06:00)
[2023-02-03] MEDS ORDERED: NITROGLYCERIN 0.4 MG SL TAB SL PRN (06:00)
[2023-02-03 06:39] LABS: Albumin 2.8 g/dL (3.4-5.0); Calcium 9.1 mg/dL (8.5-10.1); Potassium 3.7 mmol/L (3.5-5.1)
[2023-02-03 06:42] LABS: BUN/Creatinine Ratio 22.9 (10.0-20.0); Bilirubin, Total 1.1 mg/dL (0.2-1.0); Total Protein 7.7 g/dL (6.4-8.2)
[2023-02-03] MEDS: SODIUM CHLOR 0.9% PF (SALINE LOCK) 10ML VIAL/SYR IV SCH ×3 (07:12→23:22)
[2023-02-03 07:20] LABS: Basophils # (auto) 0 10 ^3/uL (0-0.2); Basophils % (auto) 0.6 % (0.0-2.0); Eosinophils # (auto) 0.1 10 ^3/uL (0-0.8); Eosinophils % (auto) 1.4 % (0.0-7.0); Hematocrit 27.4 % (41.0-53.0); Lymphocytes # (auto) 0.9 10 ^3/uL (0.4-5.4); Lymphocytes % (auto) 15.2 % (10.0-50.0); Mean Corpuscular Hemoglobin 29.9 pg (28.0-32.0); Mean Corpuscular Hgb Conc. 32.9 g/dL (32.0-36.0); Monocytes # (auto) 0.4 10 ^3/uL (0-1.3); Monocytes % (auto) 6.8 % (0.0-12.0); Neutrophils # (auto) 4.4 10 ^3/uL (1.6-8.6); Nucleated Red Blood Cells % 0.1 %; Red Blood Cells 3.01 10^6/uL (4.5-5.90); Red Cell Distribution Width 15.5 % (11.8-14.3); White Blood Cell 5.8 10^3/uL (4.4-10.8)
[2023-02-03] MEDS ORDERED: FUROSEMIDE 20 MG/2 ML VIAL IV SCH (10:00)
[2023-02-03] MEDS: CARVEDILOL 3.125 MG TAB PO SCH ×2 (10:00→22:05)
[2023-02-03] MEDS: FAMOTIDINE (10MG/ML) 2ML VL IV SCH (10:47)
[2023-02-03] MEDS: APIXABAN 5 MG TAB PO SCH ×2 (15:11→22:03)
[2023-02-03] MEDS: ALBUMIN 25% 100 ML IV SCH ×2 (15:12→15:46)
[2023-02-03 22:00] VITALS: BP 104/73
[2023-02-03] MEDS: ATORVASTATIN 20 MG TAB PO SCH (22:04)
[2023-02-03] MEDS: HYDROcodone-ACET 5/325MG TAB PO PRN (22:04)
[2023-02-03 23:29] VITALS: BP 114/69
[2023-02-04] MEDS ORDERED: PNEUMOCOCCAL VACC POLYS 25 MCG/0.5 ML VIAL IM ONE (00:30)
[2023-02-04] MEDS ORDERED: INFLUENZA QUAD 2022-2023 0.5 ML SYRG IM ONE (00:30)
[2023-02-04 05:00] VITALS: BP 98/61
[2023-02-04] MEDS: SODIUM CHLOR 0.9% PF (SALINE LOCK) 10ML VIAL/SYR IV SCH ×3 (05:19→22:20)
[2023-02-04 07:30] LABS: Basophils # (auto) 0 10 ^3/uL (0-0.2); Basophils % (auto) 0.6 % (0.0-2.0); Eosinophils # (auto) 0.1 10 ^3/uL (0-0.8); Eosinophils % (auto) 2.1 % (0.0-7.0); Hematocrit 24.4 % (41.0-53.0); Hemoglobin 8.5 g/dL (13.5-17.5); Lymphocytes # (auto) 0.7 10 ^3/uL (0.4-5.4); Lymphocytes % (auto) 14.7 % (10.0-50.0); Mean Corpuscular Hemoglobin 30.4 pg (28.0-32.0); Mean Corpuscular Hgb Conc. 34.6 g/dL (32.0-36.0); Mean Corpuscular Volume 87.9 fL (80.0-100.0); Monocytes # (auto) 0.3 10 ^3/uL (0-1.3); Monocytes % (auto) 6.1 % (0.0-12.0); Neutrophils # (auto) 3.8 10 ^3/uL (1.6-8.6); Neutrophils % (auto) 76.5 % (37.0-80.0); Nucleated Red Blood Cells % 0.1 %; Red Blood Cells 2.78 10^6/uL (4.5-5.90); Red Cell Distribution Width 15.4 % (11.8-14.3)
[2023-02-04 07:53] LABS: BUN/Creatinine Ratio 24.1 (10.0-20.0); Calcium 8.4 mg/dL (8.5-10.1); Magnesium 2.2 mg/dL (1.6-2.6); Potassium 3.7 mmol/L (3.5-5.1)
[2023-02-04 08:30] VITALS: BP 100/59
[2023-02-04] MEDS: APIXABAN 5 MG TAB PO SCH ×2 (09:35→22:21)
[2023-02-04] MEDS: CARVEDILOL 3.125 MG TAB PO SCH ×2 (09:35→22:19)
[2023-02-04] MEDS: FAMOTIDINE (10MG/ML) 2ML VL IV SCH (09:36)
[2023-02-04] MEDS: FUROSEMIDE 20 MG/2 ML VIAL IV SCH (09:36)
[2023-02-04 10:39] LABS: Alcohol, Urine < 3.0 mg/dL (0-10); Amphetamine Screen, Urine NEGATIVE (NEGATIVE); Barbiturate Scree,Urine NEGATIVE (NEGATIVE); Benzodiazephine Screen, Urine NEGATIVE (NEGATIVE); Cannabinoid Screen, Urine NEGATIVE (NEGATIVE); Cocaine Screen, Urine NEGATIVE (NEGATIVE); Opiate Scree,Urine NEGATIVE (NEGATIVE); Phencyclidine Screen, Urine NEGATIVE (NEGATIVE)
[2023-02-04 15:42] LABS: Hepatitis C Antibody Negative (Negative)
[2023-02-04 16:41] VITALS: BP 98/52
[2023-02-04 20:00] VITALS: BP 97/61
[2023-02-04] MEDS: HYDROcodone-ACET 5/325MG TAB PO PRN (20:01)
[2023-02-04 22:00] VITALS: BP 104/53
[2023-02-04] MEDS: ATORVASTATIN 20 MG TAB PO SCH (22:22)
[2023-02-05 05:00] VITALS: BP 93/61
[2023-02-05] MEDS: SODIUM CHLOR 0.9% PF (SALINE LOCK) 10ML VIAL/SYR IV SCH ×3 (06:27→22:00)
[2023-02-05 06:47] LABS: Albumin 2.6 g/dL (3.4-5.0); Calcium 8.3 mg/dL (8.5-10.1); Potassium 3.8 mmol/L (3.5-5.1)
[2023-02-05 06:50] LABS: BUN/Creatinine Ratio 24.2 (10.0-20.0); Bilirubin, Total 0.9 mg/dL (0.2-1.0); Total Protein 6.7 g/dL (6.4-8.2)
[2023-02-05 07:15] LABS: Basophils # (auto) 0 10 ^3/uL (0-0.2); Eosinophils # (auto) 0.1 10 ^3/uL (0-0.8); Eosinophils % (auto) 1.3 % (0.0-7.0); Hemoglobin 8.4 g/dL (13.5-17.5); Lymphocytes # (auto) 0.7 10 ^3/uL (0.4-5.4)
[2023-02-05 07:17] LABS: Basophils % (auto) 0.4 % (0.0-2.0); Hematocrit 23.9 % (41.0-53.0); Lymphocytes % (auto) 14.2 % (10.0-50.0); Mean Corpuscular Hemoglobin 30.5 pg (28.0-32.0); Mean Corpuscular Hgb Conc. 35.1 g/dL (32.0-36.0); Mean Corpuscular Volume 86.9 fL (80.0-100.0); Monocytes # (auto) 0.3 10 ^3/uL (0-1.3); Monocytes % (auto) 6.8 % (0.0-12.0); Neutrophils # (auto) 3.8 10 ^3/uL (1.6-8.6); Neutrophils % (auto) 77.3 % (37.0-80.0); Red Blood Cells 2.74 10^6/uL (4.5-5.90); Red Cell Distribution Width 15.4 % (11.8-14.3); White Blood Cell 4.9 10^3/uL (4.4-10.8)
[2023-02-05 09:00] VITALS: BP 90/56
[2023-02-05] MEDS: FAMOTIDINE (10MG/ML) 2ML VL IV SCH (10:21)
[2023-02-05] MEDS: APIXABAN 5 MG TAB PO SCH ×2 (10:22→21:33)
[2023-02-05] MEDS: FUROSEMIDE 20 MG/2 ML VIAL IV SCH (10:22)
[2023-02-05] MEDS: PANTOPRAZOLE 40 MG TAB PO SCH (10:22)
[2023-02-05] MEDS: CARVEDILOL 3.125 MG TAB PO SCH ×2 (11:00→21:33)
[2023-02-05 12:36] VITALS: BP 109/64
[2023-02-05 17:00] VITALS: BP 96/59
[2023-02-05] MEDS: ATORVASTATIN 20 MG TAB PO SCH (21:33)
[2023-02-05 22:00] VITALS: BP 101/65
[2023-02-06 06:02] LABS: Basophils # (auto) 0 10 ^3/uL (0-0.2); Basophils % (auto) 0.5 % (0.0-2.0); Eosinophils # (auto) 0 10 ^3/uL (0-0.8); Eosinophils % (auto) 0.6 % (0.0-7.0); Hematocrit 25.1 % (41.0-53.0); Hemoglobin 8.8 g/dL (13.5-17.5); Lymphocytes # (auto) 0.7 10 ^3/uL (0.4-5.4); Lymphocytes % (auto) 12.6 % (10.0-50.0); Mean Corpuscular Hemoglobin 30.3 pg (28.0-32.0); Mean Corpuscular Hgb Conc. 34.9 g/dL (32.0-36.0); Mean Corpuscular Volume 86.7 fL (80.0-100.0); Monocytes # (auto) 0.3 10 ^3/uL (0-1.3); Monocytes % (auto) 5.8 % (0.0-12.0); Neutrophils # (auto) 4.2 10 ^3/uL (1.6-8.6); Neutrophils % (auto) 80.5 % (37.0-80.0); Red Cell Distribution Width 15.5 % (11.8-14.3); White Blood Cell 5.2 10^3/uL (4.4-10.8)
[2023-02-06] MEDS: SODIUM CHLOR 0.9% PF (SALINE LOCK) 10ML VIAL/SYR IV SCH ×3 (06:13→22:10)
[2023-02-06 06:14] LABS: % Iron Saturation 9.8 % (20-55)
[2023-02-06 06:17] LABS: Potassium 3.9 mmol/L (3.5-5.1)
[2023-02-06 06:29] LABS: Albumin 2.6 g/dL (3.4-5.0); BUN/Creatinine Ratio 19.8 (10.0-20.0); Calcium 8.4 mg/dL (8.5-10.1); Total Protein 6.8 g/dL (6.4-8.2)
[2023-02-06 06:32] LABS: Folate (Folic Acid) 11.68 ng/mL (5.38-24)
[2023-02-06 09:00] VITALS: BP 100/66
[2023-02-06] MEDS: FAMOTIDINE (10MG/ML) 2ML VL IV SCH (09:03)
[2023-02-06] MEDS: FUROSEMIDE 20 MG/2 ML VIAL IV SCH (09:03)
[2023-02-06] MEDS: SACUBITRIL-VALSARTAN 24mg/26mg TAB PO SCH ×2 (09:03→22:07)
[2023-02-06] MEDS: APIXABAN 5 MG TAB PO SCH ×2 (09:04→22:07)
[2023-02-06] MEDS: CARVEDILOL 3.125 MG TAB PO SCH ×2 (09:04→22:07)
[2023-02-06] MEDS: PANTOPRAZOLE 40 MG TAB PO SCH (09:04)
[2023-02-06 13:00] VITALS: BP 99/63
[2023-02-06 17:00] VITALS: BP 94/60
[2023-02-06] MEDS ORDERED: SACU1TAB PO (17:12)
[2023-02-06 22:00] VITALS: BP 112/60
[2023-02-06] MEDS: ATORVASTATIN 20 MG TAB PO SCH (22:07)
[2023-02-07 05:00] VITALS: BP 97/57
[2023-02-07 06:15] LABS: Basophils # (auto) 0 10 ^3/uL (0-0.2); Basophils % (auto) 0.7 % (0.0-2.0); Eosinophils # (auto) 0 10 ^3/uL (0-0.8); Eosinophils % (auto) 0.9 % (0.0-7.0); Hematocrit 27.9 % (41.0-53.0); Hemoglobin 9.6 g/dL (13.5-17.5); Lymphocytes # (auto) 0.8 10 ^3/uL (0.4-5.4); Lymphocytes % (auto) 14.8 % (10.0-50.0); Mean Corpuscular Hemoglobin 30.2 pg (28.0-32.0); Mean Corpuscular Hgb Conc. 34.4 g/dL (32.0-36.0); Mean Corpuscular Volume 87.7 fL (80.0-100.0); Monocytes # (auto) 0.4 10 ^3/uL (0-1.3); Monocytes % (auto) 7.7 % (0.0-12.0); Neutrophils # (auto) 4.1 10 ^3/uL (1.6-8.6); Neutrophils % (auto) 75.9 % (37.0-80.0); Nucleated Red Blood Cells % 0.1 %; Red Blood Cells 3.18 10^6/uL (4.5-5.90); Red Cell Distribution Width 15.5 % (11.8-14.3); White Blood Cell 5.5 10^3/uL (4.4-10.8)
[2023-02-07] MEDS: SODIUM CHLOR 0.9% PF (SALINE LOCK) 10ML VIAL/SYR IV SCH ×2 (06:20→14:00)
[2023-02-07 06:37] LABS: Potassium 4.2 mmol/L (3.5-5.1)
[2023-02-07 06:47] LABS: Albumin 2.5 g/dL (3.4-5.0); BUN/Creatinine Ratio 29.5 (10.0-20.0); Bilirubin, Total 1.1 mg/dL (0.2-1.0); Calcium 8.6 mg/dL (8.5-10.1); Total Protein 6.7 g/dL (6.4-8.2)
[2023-02-07 09:00] VITALS: BP 83/47
[2023-02-07] MEDS: FUROSEMIDE 20 MG/2 ML VIAL IV SCH (09:06)
[2023-02-07] MEDS: SACUBITRIL-VALSARTAN 24mg/26mg TAB PO SCH (09:08)
[2023-02-07] MEDS: PANTOPRAZOLE 40 MG TAB PO SCH (09:45)
[2023-02-07] MEDS: CARVEDILOL 3.125 MG TAB PO SCH (09:45)
[2023-02-07] MEDS: APIXABAN 5 MG TAB PO SCH (09:46)
[2023-02-07 13:00] VITALS: BP 106/68
[2023-02-07 13:40] VITALS: BP 106/68
[2023-02-07] MEDS ORDERED: INFLUENZA QUAD 2022-2023 0.5 ML SYRG IM ONE (14:15)
== END 2023-02-07 16:47 | disposition home health service (06) | DRG 194 ==
LOC: EDBD 20:52 → ER 20:52 → TELE 02-03 06:02 → TELE-WESTW 02-03 21:18
PROVIDERS: ADMIT Nurse Practitioner Family; ATTEND Internal Medicine
PROC: 4B02XTZ Measurement of Cardiac Defibrillator, External Approach (ICD-10-PCS; principal; 2023-02-05)
DX: I11.0 Hypertensive heart disease with heart failure (principal); I21.A1 Myocardial infarction type 2; E88.09 Other disorders of plasma-protein metabolism, not elsewhere classified; I42.9 Cardiomyopathy, unspecified; K74.60 Unspecified cirrhosis of liver; D64.9 Anemia, unspecified; F32.A Depression, unspecified; I50.43 Acute on chronic combined systolic (congestive) and diastolic (congestive) heart failure; J44.9 Chronic obstructive pulmonary disease, unspecified; I48.0 Paroxysmal atrial fibrillation; Z20.822 Contact with and (suspected) exposure to COVID-19; K27.9 Peptic ulcer, site unspecified, unspecified as acute or chronic, without hemorrhage or perforation; R29.6 Repeated falls; Z88.8 Allergy status to other drugs, medicaments and biological substances; Z59.00 Homelessness unspecified; Z79.01 Long term (current) use of anticoagulants; Z87.19 Personal history of other diseases of the digestive system; Z95.810 Presence of automatic (implantable) cardiac defibrillator; Z91.14 Patient's other noncompliance with medication regimen
CPT/HCPCS: 36415; 70450; 71045; 73030; 76705; 80048; 80053; 80307; 81001; 82270; 82607; 82746; 83540; 83550; 83690; 83735; 83880; 84443; 84484; 85025; 85048; 85610; 85730; 86803; 87045; 87177; 87340; 87426; 87427; 87804; 90686; 93005; 93306; 96365; 96375; 99291; G0378; J1100; J3490; P9047

== ENCOUNTER 2023-02-15 14:08 | Emergency (ER) | payer MEDICAID ==
[~2023-02-15] VITALS: Ht 167.6 cm; Wt 85.0 kg
[2023-02-15 15:02] LABS: Basophils # (auto) 0 10 ^3/uL (0-0.2); Basophils % (auto) 0.7 % (0.0-2.0); Eosinophils # (auto) 0 10 ^3/uL (0-0.8); Eosinophils % (auto) 0.3 % (0.0-7.0); Hematocrit 33.9 % (41.0-53.0); Hemoglobin 11.1 g/dL (13.5-17.5); Lymphocytes # (auto) 0.7 10 ^3/uL (0.4-5.4); Lymphocytes % (auto) 11.6 % (10.0-50.0); Mean Corpuscular Hemoglobin 29.6 pg (28.0-32.0); Mean Corpuscular Hgb Conc. 32.8 g/dL (32.0-36.0); Mean Corpuscular Volume 90.2 fL (80.0-100.0); Monocytes # (auto) 0.4 10 ^3/uL (0-1.3); Monocytes % (auto) 5.6 % (0.0-12.0); Neutrophils # (auto) 5.2 10 ^3/uL (1.6-8.6); Neutrophils % (auto) 81.8 % (37.0-80.0); Nucleated Red Blood Cells % 0.3 %; Red Blood Cells 3.76 10^6/uL (4.5-5.90); Red Cell Distribution Width 16.5 % (11.8-14.3); White Blood Cell 6.4 10^3/uL (4.4-10.8)
[2023-02-15 15:28] LABS: Albumin 2.6 g/dL (3.4-5.0); Calcium 8.5 mg/dL (8.5-10.1); Potassium 4.5 mmol/L (3.5-5.1)
[2023-02-15 15:32] LABS: BUN/Creatinine Ratio 19.7 (10.0-20.0); Bilirubin, Total 1.7 mg/dL (0.2-1.0); Total Protein 6.8 g/dL (6.4-8.2)
[2023-02-16] MEDS: MIRTAZAPINE 30 MG TAB PO SCH (22:00)
[2023-02-17] MEDS ORDERED: SPIRONOLACTONE 25 MG TAB PO PRN (09:45)
[2023-02-17] MEDS ORDERED: ACETAMINOPHEN 325 MG TAB PO PRN (09:45)
[2023-02-17] MEDS: MIDODRINE HCL 10 MG TAB PO SCH (10:00)
[2023-02-17] MEDS: POTASSIUM CHL 10 Meq TABLET PO SCH (12:11)
[2023-02-17] MEDS: PANTOPRAZOLE 40 MG TAB PO SCH (12:11)
[2023-02-17] MEDS: CARVEDILOL 3.125 MG TAB PO SCH (12:12)
[2023-02-17] MEDS: FUROSEMIDE 20 MG TAB PO SCH (12:12)
[2023-02-17] MEDS: APIXABAN 5 MG TAB PO SCH (12:15)
[2023-02-17] MEDS: SACUBITRIL-VALSARTAN 24mg/26mg TAB PO SCH (12:36)
[2023-02-18] MEDS: CARVEDILOL 3.125 MG TAB PO SCH ×2 (00:16→12:05)
[2023-02-18] MEDS: APIXABAN 5 MG TAB PO SCH ×2 (00:18→12:54)
[2023-02-18] MEDS: SACUBITRIL-VALSARTAN 24mg/26mg TAB PO SCH ×2 (00:24→12:54)
[2023-02-18] MEDS: MIDODRINE HCL 10 MG TAB PO SCH ×2 (00:39→12:57)
[2023-02-18] MEDS: PANTOPRAZOLE 40 MG TAB PO SCH ×2 (00:41→12:57)
[2023-02-18] MEDS: MIRTAZAPINE 30 MG TAB PO SCH (00:42)
[2023-02-18] MEDS: FUROSEMIDE 20 MG TAB PO SCH (12:05)
[2023-02-18] MEDS: POTASSIUM CHL 10 Meq TABLET PO SCH (12:55)
[2023-02-18 18:34] VITALS: BP 93/59
== END 2023-02-18 11:44 | disposition short-term general hospital (02) ==
LOC: ER 14:08 → EDBD 14:08 → ER 02-18 11:44
DX: R45.851 Suicidal ideations (principal); R53.1 Weakness; R07.9 Chest pain, unspecified; R06.02 Shortness of breath; I48.91 Unspecified atrial fibrillation; I11.0 Hypertensive heart disease with heart failure; I50.9 Heart failure, unspecified; J44.9 Chronic obstructive pulmonary disease, unspecified; E78.5 Hyperlipidemia, unspecified; F15.10 Other stimulant abuse, uncomplicated; Z95.0 Presence of cardiac pacemaker
CPT/HCPCS: 36415; 71045; 80053; 83880; 84484; 85025; 93005